=== PATIENT | male | born 1975 | race African-American/Black ===

== ENCOUNTER 2017-09-07 18:40 | Emergency (ER) | payer OTHER, MEDICAID ==
[2017-09-07] MEDS ORDERED: HYDROCODONE/ACETAMINOPHEN 5-325 MG (6 TAB/ER DISP) PO PRN (20:29)
--- NOTE | 2017-09-07 20:37 | ER Document Report ---
HPI - HPI Pain Level: 4 Context: 41 yo male with hx/o avascular necrosis of both hips c/o increased pain to right hip today. pt had recent hip MRI but has not had follow up appointment to get results. [facility]. usually takes Naprosyn for pain but no relief today. denies any recent trauma, no chest pain or shortness of breath. walks with cane Associated Symptoms: None Exacerbated by: Movement, Walking Relieved by: Denies Similar symptoms previously: Yes Recently seen / treated by doctor: No - ROS Systems Reviewed and Negative: Yes All other systems reviewed and negative - REPRODUCTIVE Reproductive: DENIES: : - MUSCULOSKELETAL Musculoskeletal: REPORTS: Extremity pain Past Medical History - General Information source: Patient - Social History Smoking Status: Former Smoker Chew tobacco use (# tins/day): Yes Frequency of alcohol use: Occasional Drug Abuse: None Lives with: Family Family History: CVA, DM, Hypertension, Thyroid Disfunction Patient has suicidal ideation: No Patient has homicidal ideation: No Endocrine Medical History: Reports: Hx Graves' Disease Renal/ Medical History: Reports: Hx Kidney Stones. Denies: Hx Peritoneal Dialysis Musculoskeltal Medical History: Reports Hx Arthritis, Reports Hx Musculoskeletal Deformity, Reports Other - avascular necrosis bilat hips Past Surgical History: Reports: Hx Nose Surgery - Immunizations Hx Diphtheria, Pertussis, Tetanus Vaccination: No Vertical Provider Document - CONSTITUTIONAL Agree With Documented VS: Yes Exam Limitations: No Limitations General Appearance: WD/WN - INFECTION CONTROL TRAVEL OUTSIDE OF THE [place]. IN LAST 30 DAYS: No - HEENT HEENT: Atraumatic, PERRLA - NECK Neck: Normal Inspection, Supple - RESPIRATORY Respiratory: Breath Sounds Normal, No Respiratory Distress O2 Sat by Pulse Oximetry: 96 - MUSCULOSKELETAL/EXTREMETIES Musculoskeletal/Extremeties: Tender - right greater trochanter and right anterior groin over sartorious muscle + pain with right hip abduction. distal SMC intact. Course - Re-evaluation Re-evalutation: 09/07/17 20:34 medical records from [place] reviewed. verified hx/o avascular necrosis. no signs of circulatory compromise. Follow up with PCP discussed with patient. pt verbalized understanding, agreeable with plan and stable for discharge. short course of pain meds prescribed. [place] Controlled substance report reviewed. no recent narcotics. - Vital Signs Vital signs: Temp Pulse Resp BP Pulse Ox 98.8 F 82 18 135/88 H 96 01/10/18 18:53 09/07/17 18:53 09/07/17 18:53 09/07/17 18:53 09/07/17 18:53 Discharge - Discharge Clinical Impression: Hip pain Qualifiers: Laterality: right Qualified Code(s): M25.551 - Pain in right hip Condition: Stable Disposition: HOME, SELF-CARE Instructions: Oral Narcotic Medication ([facility]) Additional Instructions: I have prescribed a short course of pain medication Please follow up with your primary care for further pain management Prescriptions: Oxycodone HCl/Acetaminophen [Percocet 5-325 mg Tablet] 1 tab PO Q6H PRN #25 tablet PRN Reason:
[2017-09-07 21:03] VITALS: BP 128/84
== END 2017-09-07 21:06 | disposition home or self-care (01) ==
LOC: ER 18:40
DX: M25.551 Pain in right hip (principal); Z87.39 Personal history of other diseases of the musculoskeletal system and connective tissue; Z87.891 Personal history of nicotine dependence
CPT/HCPCS: 99283

== ENCOUNTER 2018-03-11 11:40 | Emergency (ER) | payer OTHER, MEDICAID ==
[2018-03-11 11:46] VITALS: BP 148/99
[2018-03-11] MEDS ORDERED: FENTANYL CITRATE INJ/PF 100 MCG/2 ML AMPUL IM ONE (12:00)
[2018-03-11] MEDS ORDERED: METOCLOPRAMIDE HCL INJ/PF 10 MG/2 ML SDV IM ONE (12:00)
--- NOTE | 2018-03-11 12:02 | ER Document Report ---
ED Medical Screen (RME) - General Chief Complaint: Abdominal Pain Stated Complaint: ABDOMINAL PAIN Time Seen by Provider: 03/11/18 11:57 Notes: RAPID MEDICAL EVALUATION DISCLOSURE I have seen this patient as part of a Rapid Medical Evaluation and, if applicable, placed any initially appropriate orders. The patient will be seen and fully evaluated, including a full history and physical exam, by a provider ( in Main ED or Fast Track) when a room becomes available. 42-year-old male PMH kidney stones here with complaints of right-sided abdominal pain that started early this morning with nausea and vomiting. The pain has been constant and initially was nonradiating however in the last hour has started to shoot through to the back. He had some blood in the urine yesterday but none today. No dysuria frequency hesitancy. He has not taken anything for the symptoms. EXAM No appreciable abdominal TTP No CVA TTP TRAVEL OUTSIDE OF THE [place]. IN LAST 30 DAYS: No - Related Data Allergies/Adverse Reactions: shellfish derived Allergy (Verified 09/07/17 20:20) Past Medical History Endocrine Medical History: Reports: Hx Graves' Disease Renal/ Medical History: Reports: Hx Kidney Stones. Denies: Hx Peritoneal Dialysis Musculoskeltal Medical History: Reports Hx Arthritis, Reports Hx Musculoskeletal Deformity Past Surgical History: Reports: Hx Nose Surgery - Immunizations Hx Diphtheria, Pertussis, Tetanus Vaccination: No Physical Exam - Vital signs Vitals: Temp Pulse Resp BP Pulse Ox 98.5 F 63 28 H 148/99 H 100 03/11/18 11:44 03/11/18 11:44 03/11/18 11:44 03/11/18 11:44 03/11/18 11:44 Course - Vital Signs Vital signs: Temp Pulse Resp BP Pulse Ox 98.5 F 63 28 H 148/99 H 100 03/11/18 11:44 03/11/18 11:44 03/11/18 11:44 03/11/18 11:44 03/11/18 11:44
[2018-03-11 12:44] LABS: APPEARANCE,URINE SLIGHTLY-CLOUDY; BILIRUBIN,URINE NEGATIVE (NEGATIVE); COLOR,URINE YELLOW; GLUCOSE, URINE NEGATIVE (NEGATIVE); KETONES,URINE TRACE mg/dL (NEGATIVE); LEUKOCYTE ESTERASE,URINE NEGATIVE (NEGATIVE); NITRITE,URINE NEGATIVE (NEGATIVE); PROTEIN,URINE 100 mg/dL (NEGATIVE); URINE SPECIFIC GRAVITY 1.023; UROBILINOGEN,URINE NEGATIVE mg/dL (<2.0)
[2018-03-11 12:45] LABS: ABSOLUTE EOSINOPHILS # (AUTO) 0.2 10^3/uL (0.0-0.6); ABSOLUTE MONOCYTES (AUTO) 0.6 10^3/uL (0.1-1.4); ABSOLUTE NEUT (AUTO) 4.6 10^3/uL (1.7-8.2); BASOPHILS % (AUTO) 0.7 % (0-2); EOSINOPHILS % (AUTO) 2.9 % (0-6); HEMOGLOBIN 15.6 g/dL (13.5-17.0); MEAN CORPUSCULAR HEMOGLOBIN 32.4 pg (27.0-33.4); MEAN CORPUSCULAR VOLUME 95 fl (80-97); MONOCYTES % (AUTO) 9.3 % (3-13); PLATELET COUNT 307 10^3/uL (150-450); RED BLOOD COUNT 4.83 10^6/uL (4.35-5.55); RED CELL DISTRIBUTION WIDTH 13.2 % (11.5-14.0); SEGMENTED NEUTROPHILS % (AUTO) 72.1 % (42-78); TOTAL CELLS COUNTED % (AUTO) 100 %; WHITE BLOOD COUNT 6.4 10^3/uL (4.0-10.5)
--- NOTE | 2018-03-11 12:50 | RADIOLOGY REPORT (SQ) ---
EXAM DESCRIPTION: CT LTD RENAL STONE PROTOCOL ON COMPLETED DATE/TIME: 03/11/2018 12:38 pm REASON FOR STUDY: R abd/back pain; eval stone appendicitis etc COMPARISON: 04/13/2011 TECHNIQUE: CT scan of the abdomen and pelvis performed without intravenous or oral contrast. Images reviewed with lung, soft tissue, and bone windows. Reconstructed coronal and sagittal MPR images revi ewed. All images stored on PACS. All CT scanners at this facility use dose modulation, iterative reconstruction, and/or weight based d osing when appropriate to reduce radiation dose to as low as reasonably achievable (ALARA). [facility]: Dose Right [facility]: CareDose [facility]: Dose Right [facility]: Teradose 4D [facility]: Smart [place] RADIATION DOSE: CT Rad equipment meets quality standard of care and radiation dose reduction techniq ues were employed. CTDIvol: 9.0 mGy. DLP: 473 mGy-cm.mGy. LIMITATIONS: None. FINDINGS: LOWER CHEST: No significant findings. No nodules or infiltrates. NON-CONTRASTED LIVER, SPLEEN, ADRENALS: Evaluation limited by lack of IV contrast. No identified sign ificant masses. PANCREAS: No masses. No peripancreatic inflammatory changes. GALLBLADDER: No identified stones by CT criteria. No inflammatory changes to suggest cholecystitis. RIGHT KIDNEY AND URETER: No suspicious masses. Assessment limited by lack of IV contrast. 8 mm calc ulus at the UP junction with moderate proximal obstructive changes. No hydronephrosis or hydrourete r. LEFT KIDNEY AND URETER: No suspicious masses. Assessment limited by lack of IV contrast. No signifi cant calcifications. No hydronephrosis or hydroureter. AORTA AND RETROPERITONEUM: No aneurysm. No retroperitoneal masses or adenopathy. BOWEL AND PERITONEAL CAVITY: No obvious masses or inflammatory changes. No free fluid. APPENDIX: Normal. PELVIS, BLADDER, AND ABDOMINAL WALL:No abnormal masses. No free fluid. Bladder normal. BONES: Right THR OTHER: No other significant finding. IMPRESSION: 8 mm calculus proximal right UPJ with moderate obstructive changes. COMMENT: Quality ID # [id number]: Final reports with documentation of one or more dose reduction techniques (e.g., Automated exposure control, adjustment of the mA and/or kV according to patient size, use of iterative reconstruction technique) TECHNICAL DOCUMENTATION: JOB ID: [id number] [employer]- All Rights Reserved Reading location - IP/workstation name: [email or web address]
[2018-03-11 13:13] LABS: ALANINE AMINOTRANSFERASE 42 U/L (21-72); ALBUMIN 4.6 g/dL (3.5-5.0); ALKALINE PHOSPHATASE 105 U/L (38-126); ANION GAP 11 (5-19); ASPARTATE AMINO TRANSFERASE 31 U/L (17-59); BILIRUBIN,DIRECT 0.3 mg/dL (0.0-0.4); BILIRUBIN,TOTAL 0.8 mg/dL (0.2-1.3); BLOOD UREA NITROGEN 13 mg/dL (7-20); CALCIUM 9.9 mg/dL (8.4-10.2); CARBON DIOXIDE 30 mmol/L (22-30); CHLORIDE 100 mmol/L (98-107); GLUCOSE 122 mg/dL (75-110); LIPASE 98.5 U/L (23-300); POTASSIUM 4.8 mmol/L (3.6-5.0); SODIUM 141.2 mmol/L (137-145); TOTAL PROTEIN 8.1 g/dL (6.3-8.2)
[2018-03-11] MEDS ORDERED: KETOROLAC TROMETHAMINE INJ/PF 30 MG/1 ML SDV IV ONE (14:08)
--- NOTE | 2018-03-11 14:09 | ER Document Report ---
ED General - General Chief Complaint: Abdominal Pain Stated Complaint: ABDOMINAL PAIN Time Seen by Provider: 03/11/18 11:57 Mode of Arrival: Ambulatory Information source: Patient Notes: 42-year-old male who presents emergency department with complaints of right- sided abdominal pain. Pain is a sharp and stabbing sensation located in the right flank. The pain was initially nonradiating but has started to radiate to the back into the right lower quadrant. Patient states that he does have a history of kidney stones. He states that this feels different from the previous kidney stones that he has had. He states that he has noticed some hematuria. He denies any dysuria, increased urgency, increased frequency. He is having some associated nausea and vomiting. TRAVEL OUTSIDE OF THE [place]. IN LAST 30 DAYS: No - HPI Onset: This morning Onset/Duration: Sudden Quality of pain: Sharp, Stabbing, Throbbing Associated symptoms: Nausea, Vomiting Exacerbated by: Denies Relieved by: Denies Similar symptoms previously: No Recently seen / treated by doctor: No - Related Data Allergies/Adverse Reactions: shellfish derived Allergy (Verified 03/11/18 12:01) Past Medical History - General Information source: Patient - Social History Smoking Status: Never Smoker Chew tobacco use (# tins/day): Yes - 1can/weekly Frequency of alcohol use: Social Drug Abuse: None Family History: CVA, DM, Hypertension, Thyroid Disfunction Patient has suicidal ideation: No Patient has homicidal ideation: No Endocrine Medical History: Reports: Hx Graves' Disease Renal/ Medical History: Reports: Hx Kidney Stones. Denies: Hx Peritoneal Dialysis Musculoskeletal Medical History: Reports Hx Arthritis, Reports Hx Musculoskeletal Deformity Past Surgical History: Reports: Hx Nose Surgery - Immunizations Hx Diphtheria, Pertussis, Tetanus Vaccination: No Review of Systems - Review of Systems Constitutional: No symptoms reported EENT: No symptoms reported Cardiovascular: No symptoms reported Respiratory: No symptoms reported Gastrointestinal: Abdominal pain, Nausea, Vomiting Genitourinary: No symptoms reported Musculoskeletal: No symptoms reported Skin: No symptoms reported Hematologic/Lymphatic: No symptoms reported Neurological/Psychological: No symptoms reported -: Yes All other systems reviewed and negative Physical Exam - Vital signs Vitals: Temp Pulse Resp BP Pulse Ox 98.5 F 63 28 H 148/99 H 100 03/11/18 11:44 03/11/18 11:44 03/11/18 11:44 03/11/18 11:44 03/11/18 11:44 Interpretation: Normal - Notes Notes: PHYSICAL EXAMINATION: GENERAL: Well-appearing, well-nourished and in no acute distress. HEAD: Atraumatic, normocephalic. EYES: Pupils equal round and reactive to light, extraocular movements intact, sclera anicteric, conjunctiva are normal. ENT: Nares patent, oropharynx clear without exudates. Moist mucous membranes. NECK: Normal range of motion, supple without lymphadenopathy LUNGS: Breath sounds clear to auscultation bilaterally and equal. No wheezes rales or rhonchi. HEART: Regular rate and rhythm without murmurs ABDOMEN: Soft, nontender, nondistended abdomen. R flank tenderness to palpation. No guarding, no rebound. Musculoskeletal: Normal range of motion, no pitting or edema. No cyanosis. NEUROLOGICAL: Cranial nerves grossly intact. Normal speech, normal gait. Normal sensory, motor exams PSYCH: Normal mood, normal affect. SKIN: Warm, Dry, normal turgor, no rashes or lesions noted. Course - Re-evaluation Re-evalutation: 03/11/18 14:12 Labs and imaging obtained. Urinalysis is significant for red blood cells. CT of the abdomen and pelvis was done. It shows an 8 mm proximal UPJ stone. No hydro-or hydroureter appreciated. 03/11/18 14:[address] Fisher at [facility]. He would like to see the patient outpatient. I will try to control the patient's pain and provide him with Dr. Fisher's office information. 03/11/18 15:08 I discussed the plan of care with the patient. He is agreeable with discharge home and following up outpatient. He has oxycodone at home. I will provide nausea medication. Patient told to follow up with Dr. Fisher as directed, to take medications prescribed, and to return for worsening symptoms. - Vital Signs Vital signs: Temp Pulse Resp BP Pulse Ox 98.5 F 63 28 H 148/99 H 100 03/11/18 11:44 03/11/18 11:44 03/11/18 11:44 03/11/18 11:44 03/11/18 11:44 - Laboratory Result Diagrams: 03/11/18 12:15 03/11/18 12:15 Laboratory results interpreted by me: 03/11/18 03/11/18 12:15 12:15 Glucose 122 H Urine Protein 100 H Urine Ketones TRACE H Urine Blood LARGE H Urine Ascorbic Acid 40 H Discharge - Discharge Clinical Impression: Kidney stone on right side Condition: Stable Disposition: HOME, SELF-CARE Instructions: Kidney Stone ([facility]) Additional Instructions: Urologist: Dr. Dm Fisher Address: [address] [place] [address] Prescriptions: Ondansetron [Zofran Odt 4 mg Tablet] 1 tab PO Q4H PRN #15 tab.rapdis PRN Reason: For Nausea/Vomiting Referrals: SLICK SPEAR MD [Primary Care Provider] - Follow up as needed DM FISHER MD [NO LOCAL MD] - Follow up as needed
== END 2018-03-11 15:26 | disposition home or self-care (01) ==
LOC: ER 11:40
DX: N20.1 Calculus of ureter (principal); R31.0 Gross hematuria; R11.2 Nausea with vomiting, unspecified; Z91.013 Allergy to seafood; Z72.0 Tobacco use
CPT/HCPCS: 99284; 96372; 96374; 36415; 83690; 85025; 80053; 81001; 76380; J3010; J1885; J2765

== ENCOUNTER 2018-07-07 14:53 | Emergency (ER) | payer OTHER, MEDICAID ==
[2018-07-07] MEDS ORDERED: KETOROLAC TROMETHAMINE 60 MG/2 ML SDV IM ONE (16:19)
[2018-07-07] MEDS ORDERED: CYCLOBENZAPRINE HCL 10 MG TABLET PO ONE (16:19)
--- NOTE | 2018-07-07 16:19 | RADIOLOGY REPORT (SQ) ---
EXAM DESCRIPTION: WRIST RIGHT 3 VIEWS COMPLETED DATE/TIME: 07/07/2018 4:02 pm REASON FOR STUDY: possible fracture COMPARISON: 02/18/2014 NUMBER OF VIEWS: Three views. TECHNIQUE: AP, lateral, and oblique radiographic images acquired of the right wrist. LIMITATIONS: None. FINDINGS: MINERALIZATION: Normal. BONES: No acute fracture or dislocation. No worrisome bone lesions. Normal alignment. SOFT TISSUES: No soft tissue swelling. No foreign body. OTHER: No other significant finding. IMPRESSION: NEGATIVE STUDY OF THE RIGHT WRIST. NO RADIOGRAPHIC EVIDENCE OF ACUTE INJURY. TECHNICAL DOCUMENTATION: JOB ID: [id number] [employer]- All Rights Reserved Reading location - IP/workstation name: [email or web address]
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
--- NOTE | 2018-07-07 17:08 | RADIOLOGY REPORT (SQ) ---
EXAM DESCRIPTION: HIP BILATERAL COMPLETED DATE/TIME: 07/07/2018 4:47 pm REASON FOR STUDY: pain COMPARISON: Right hip films 04/26/2016 NUMBER OF VIEWS: Two views. TECHNIQUE: AP pelvis and additional frog-leg view of the right and left hip. LIMITATIONS: None. FINDINGS: MINERALIZATION: Normal. RIGHT HIP: No fracture or dislocation. Right total hip replacement with acetabular component anchore d with a screw. No lucency around the hardware worrisome for loosening. LEFT HIP: Subcortical bony sclerosis throughout the left femoral head weight-bearing surface from gideon scular necrosis. No articular surface collapse. This is similar compared to plain films from 016. No acute fracture or malalignment. PUBIS AND ISCHIUM: No fracture. PELVIS: No fracture. SACRUM: No fracture or dislocation. No worrisome bone lesions. LOWER LUMBAR SPINE: No fracture or dislocation. No worrisome bone lesions. No significant disc disea se. SOFT TISSUES: Prostate calcification OTHER: No other significant finding. IMPRESSION: Right hip replacement in good alignment. No lucency around the hardware worrisome for l oosening. Avascular necrosis left femoral head without articular surface collapse. No acute left femur fractur e. TECHNICAL DOCUMENTATION: JOB ID: [id number] [employer]- All Rights Reserved Reading location - IP/workstation name: [email or web address]
[2018-07-07] MEDS ORDERED: DIPH/PERTUSS(ACELL)/TETANUS VAC/PF 0.5 ML SYR (>=10YO) IM ONE (17:44)
[2018-07-07 18:26] VITALS: BP 128/87
== END 2018-07-07 18:34 | disposition home or self-care (01) ==
LOC: ER 14:53
DX: S60.512A Abrasion of left hand, initial encounter (principal); S50.811A Abrasion of right forearm, initial encounter; M79.645 Pain in left finger(s); M25.531 Pain in right wrist; M25.551 Pain in right hip; M25.552 Pain in left hip; M79.18 Myalgia, other site; M54.2 Cervicalgia; V53.5XXA Driver of pick-up truck or van injured in collision with car, pick-up truck or van in traffic accident, initial encounter; Z96.641 Presence of right artificial hip joint; Z96.612 Presence of left artificial shoulder joint; I96 Gangrene, not elsewhere classified; I10 Essential (primary) hypertension; Z72.0 Tobacco use
CPT/HCPCS: 99284; 96372; 90471; 73130; 73522; 73110; 90715; L3908; J1885

== ENCOUNTER 2019-02-17 02:59 | Emergency (ER) | payer OTHER, MEDICAID ==
[2019-02-17] MEDS ORDERED: ONDANSETRON HCL INJ/PF 4 MG/2 ML SDV IV ONE (03:49)
[2019-02-17] MEDS ORDERED: NORMAL SALINE 1000 ML 1,000 ML IV ONE (03:49)
[2019-02-17] MEDS ORDERED: MORPHINE SULFATE 10 MG/ML INJ IV ONE (03:49)
--- NOTE | 2019-02-17 03:51 | ER Document Report ---
ED Medical Screen (RME) - General Stated Complaint: ABDOMINAL PAIN Time Seen by Provider: 02/17/19 03:43 Notes: Patient is a 43-year-old male who who presents emergency department chief complaint nominal pain. He states the pain is on the right side. It started his mid abdomen now has radiated to the right lower side. It started about 5 hours ago. He states he feels nauseous, but he does not want to throw up because he took his medications tonight. He thought he was constipated and his last full bowel movement was yesterday morning. He is currently on Prilosec, iron, vitamin D. He has a history of Graves' disease, degenerative disease, avascular necrosis, and multiple skeletal surgeries in the past. Exam: Tender right abdomen. I have greeted and performed a rapid initial assessment of this patient. A comprehensive ED assessment and evaluation of the patient, analysis of test results and completion of medical decision making process will be conducted by an additional ED providers. TRAVEL OUTSIDE OF THE [place]. IN LAST 30 DAYS: No - Related Data Allergies/Adverse Reactions: shellfish derived Allergy (Verified 03/11/18 12:01) Past Medical History Endocrine Medical History: Reports: Hx Graves' Disease Renal/ Medical History: Reports: Hx Kidney Stones. Denies: Hx Peritoneal Dialysis Musculoskeltal Medical History: Reports Hx Arthritis, Reports Hx Musculoskeletal Deformity Past Surgical History: Reports: Hx Nose Surgery - Immunizations Hx Diphtheria, Pertussis, Tetanus Vaccination: No Physical Exam - Vital signs Vitals: Temp Pulse Resp BP Pulse Ox 98.4 F 69 24 H 142/105 H 100 02/17/19 03:06 02/17/19 03:06 02/17/19 03:06 02/17/19 03:06 02/17/19 03:06 Course - Vital Signs Vital signs: Temp Pulse Resp BP Pulse Ox 98.4 F 69 24 H 142/105 H 100 02/17/19 03:06 02/17/19 03:06 02/17/19 03:06 02/17/19 03:06 02/17/19 03:06
[2019-02-17 04:35] LABS: ABSOLUTE EOSINOPHILS # (AUTO) 0.1 10^3/uL (0.0-0.6); ABSOLUTE LYMPHOCYTES (AUTO) 1.3 10^3/uL (0.5-4.7); ABSOLUTE MONOCYTES (AUTO) 0.6 10^3/uL (0.1-1.4); ABSOLUTE NEUT (AUTO) 4.6 10^3/uL (1.7-8.2); BASOPHILS % (AUTO) 0.5 % (0-2); EOSINOPHILS % (AUTO) 1.3 % (0-6); HEMATOCRIT 42.4 % (37.9-51.0); HEMOGLOBIN 14.5 g/dL (13.5-17.0); LYMPHOCYTES % (AUTO) 18.9 % (13-45); MEAN CORPUSCULAR HEMOGLOBIN 32.5 pg (27.0-33.4); MEAN CORPUSCULAR HGB CONC 34.2 g/dL (32.0-36.0); MEAN CORPUSCULAR VOLUME 95 fl (80-97); MONOCYTES % (AUTO) 9.8 % (3-13); PLATELET COUNT 293 10^3/uL (150-450); RED BLOOD COUNT 4.46 10^6/uL (4.35-5.55); RED CELL DISTRIBUTION WIDTH 12.8 % (11.5-14.0); SEGMENTED NEUTROPHILS % (AUTO) 69.5 % (42-78); TOTAL CELLS COUNTED % (AUTO) 100 %; WHITE BLOOD COUNT 6.6 10^3/uL (4.0-10.5)
[2019-02-17 04:49] LABS: APPEARANCE,URINE CLEAR; BILIRUBIN,URINE NEGATIVE (NEGATIVE); COLOR,URINE YELLOW; GLUCOSE, URINE NEGATIVE (NEGATIVE); KETONES,URINE TRACE mg/dL (NEGATIVE); LEUKOCYTE ESTERASE,URINE NEGATIVE (NEGATIVE); NITRITE,URINE NEGATIVE (NEGATIVE); PROTEIN,URINE NEGATIVE (NEGATIVE); URINE SPECIFIC GRAVITY 1.025; UROBILINOGEN,URINE NEGATIVE mg/dL (<2.0)
[2019-02-17 04:55] LABS: ALANINE AMINOTRANSFERASE 45 U/L (21-72); ALBUMIN 4.5 g/dL (3.5-5.0); ALKALINE PHOSPHATASE 88 U/L (38-126); ANION GAP 12 (5-19); ASPARTATE AMINO TRANSFERASE 34 U/L (17-59); BILIRUBIN,DIRECT 0.4 mg/dL (0.0-0.4); BLOOD UREA NITROGEN 12 mg/dL (7-20); CALCIUM 9.6 mg/dL (8.4-10.2); CARBON DIOXIDE 23 mmol/L (22-30); CHLORIDE 102 mmol/L (98-107); GLUCOSE 132 mg/dL (75-110); POTASSIUM 4.8 mmol/L (3.6-5.0); SODIUM 136.9 mmol/L (137-145); TOTAL PROTEIN 7.8 g/dL (6.3-8.2)
[2019-02-17] MEDS ORDERED: DIPHENHYDRAMINE HCL 50 MG/ML VIAL ONE (05:18)
[2019-02-17] MEDS ORDERED: DIPHENHYDRAMINE HCL 50 MG/ML VIAL IV ONE (05:18)
--- NOTE | 2019-02-17 05:40 | RADIOLOGY REPORT (SQ) ---
EXAM DESCRIPTION: CT ABDOMEN PELVIS WITH IV CONTRAST COMPLETED DATE/TME: 02/17/2019 03:57 CLINICAL HISTORY: 43 years Male, abdominal pain Comparison: Bilateral hip radiographs, July 07, 2018 Technique: IV contrast. Coronal and sagittal reformat. This exam was performed according to our departmental dose-optimization program, which includes automated exposure control, adjustment of the mA and/or kV according to patient size and/or use of iterative reconstruction technique. [facility]: Dose Right [facility]: CareDose [facility]: Dose Right [facility]: Teradose 4D [facility]: Insplorion LIMITATIONS: None Findings: 0.8 x 0.9 x 0.7 cm, 868-HU, right proximal ureteral stone at the L3 level with moderate right hydronephrosis/hydroureter and moderate right perinephric fat stranding. AVN pattern of the left femoral head without fracture. No ascites. Right total hip arthroplasty. Hepatic steatosis. Normal appendix. No gross evidence of gallbladder inflammation or hepatobiliary obstruction. No bowel obstruction. No evidence of abdominal aortic aneurysm. Inferior thorax, liver, gallbladder, pancreas, spleen, adrenals, renal system, gastrointestinal tract, pelvic organs, lymphatics, vasculature, and musculoskeleton appear otherwise unremarkable. IMPRESSION: A 0.9 cm right proximal ureteral stone with moderate grade obstruction. Avascular necrosis of the left femoral head. Right total hip arthroplasty.
[2019-02-17] MEDS ORDERED: KETOROLAC TROMETHAMINE INJ/PF 30 MG/1 ML SDV IV ONE (06:02)
[2019-02-17] MEDS ORDERED: TAMSULOSIN HCL 0.4 MG CAP.SR.24H PO ONE (06:02)
--- NOTE | 2019-02-17 07:17 | ER Document Report ---
ED General - General Chief Complaint: Abdominal Pain Stated Complaint: ABDOMINAL PAIN Time Seen by Provider: 02/17/19 03:43 Notes: Patient is a 43-year-old male who who presents emergency department chief complaint nominal pain. He states the pain is on the right side. It started his mid abdomen now has radiated to the right lower side. It started about 5 hours ago. He states he feels nauseous, but he does not want to throw up because he took his medications tonight. He thought he was constipated and his last full bowel movement was yesterday morning. He is currently on Prilosec, iron, vitamin D. He has a history of Graves' disease, degenerative disease, avascular necrosis, and multiple skeletal surgeries in the past. TRAVEL OUTSIDE OF THE [place] IN LAST 30 DAYS: No - Related Data Allergies/Adverse Reactions: Iodinated Contrast- Oral and IV Dye Allergy (Verified 02/17/19 05:47) Pruritis shellfish derived Allergy (Verified 03/11/18 12:01) Past Medical History - Social History Smoking Status: Unknown if Ever Smoked Family History: CVA, DM, Hypertension, Thyroid Disfunction Patient has suicidal ideation: No Patient has homicidal ideation: No Endocrine Medical History: Reports: Hx Graves' Disease Renal/ Medical History: Reports: Hx Kidney Stones. Denies: Hx Peritoneal Dialysis Musculoskeletal Medical History: Reports Hx Arthritis, Reports Hx Musculoskeletal Deformity Past Surgical History: Reports: Hx Nose Surgery - Immunizations Hx Diphtheria, Pertussis, Tetanus Vaccination: No Review of Systems - Review of Systems Notes: REVIEW OF SYSTEMS: CONSTITUTIONAL : Denies recent illness. Denies recent unintentional weight loss. Denies fever, chills, or sweats. EENT: Denies eye, ear, throat, or mouth pain, discharge, or symptoms. Denies nasal or sinus congestion. CARDIOVASCULAR: Denies chest pain. RESPIRATORY: Denies shortness of breath, cough, congestion, difficulty breathing, or wheezing. GASTROINTESTINAL: See HPI GENITOURINARY: Denies difficulty urinating, burning, blood in urine, urgency or frequency. MUSCULOSKELETAL: Denies neck and back pain. Denies joint pain or swelling. SKIN: Denies rash, itchiness, or lesions HEMATOLOGIC : Denies easy bruising or bleeding. LYMPHATIC: Denies swollen, painful, enlarged glands. NEUROLOGICAL: Denies no numbness or tingling denies weakness. Denies headache. Denies altered mental status. Denies alteration in speech. PSYCHIATRIC: Denies stress, anxiety, alteration in sleep patterns, or depression. All other systems reviewed and negative. Physical Exam - Vital signs Vitals: Temp Pulse Resp BP Pulse Ox 98.4 F 69 24 H 142/105 H 100 02/17/19 03:06 02/17/19 03:06 02/17/19 03:06 02/17/19 03:06 02/17/19 03:06 - Notes Notes: PHYSICAL EXAMINATION: GENERAL: Appears well, healthy, well-nourished, no acute distress. HEAD: Normocephalic, atraumatic. EYES: PERRL, conjunctiva normal, all extraocular movements intact, sclera nonicteric ENT: Moist mucous membranes. NECK: Supple, no noticeable swelling, redness, rash. Normal range of motion. LUNGS: Equal breath sounds bilaterally and clear to auscultation. No wheezes rales or rhonchi. CARDIOVASCULAR: S1-S2, regular rate, regular rhythm. Radial pulses 2+, normal. ABDOMEN: Normoactive bowel sounds. Soft, tender right lower quadrant, no guarding, no rebound tenderness, and no masses palpated. EXTREMITIES: Normal strength and range of motion, no pitting or edema. No cyanosis. NEUROLOGICAL: Moves all extremities upon command. Strength 5/5 in all extremities. PSYCH: Normal mood, normal affect. SKIN: Warm, dry. No rash, lesions, ulcerations noted. Normal skin turgor. Course - Re-evaluation Re-evalutation: 02/17/19 07:18 Patient states that he feels much better after receiving the Toradol and Flomax. The pain is almost gone. I will start him on Flomax and Toradol at home. I have advised him that he will continue to have pain while the stone passes. He will follow-up with urology in regards to this visit. Follow-up precautions were given. Verbal discharge instructions were given to the patient. They verbalized understanding. They are stable for discharge. Documentation was completed using voice recognition software, therefore there may be some unintended grammatical or punctual errors. - Vital Signs Vital signs: Temp Pulse Resp BP Pulse Ox 98.4 F 69 17 123/85 95 02/17/19 03:06 02/17/19 03:06 02/17/19 07:02 02/17/19 07:02 02/17/19 07:02 - Laboratory Result Diagrams: 02/17/19 04:10 02/17/19 04:10 Laboratory results interpreted by me: 02/17/19 02/17/19 03:55 04:10 Sodium 136.9 L Glucose 132 H Urine Ketones TRACE H Urine Blood MODERATE H Discharge - Discharge Clinical Impression: Renal calculi Abdominal pain Qualifiers: Abdominal location: right lower quadrant Qualified Code(s): R10.31 - Right lower quadrant pain Condition: Stable Disposition: HOME, SELF-CARE Additional Instructions: Your symptoms should improve over the course of the next one week. If you continue to have pain for greater than one week or your pain is not controlled with the pain medications that you have been sent home with you need to return to the emergency department. Please also return if you develop fever, persistent vomiting, or any other symptoms that are concerning to you. You should take Toradol and Tylenol 1000 mg every 6 hours for your pain. You are also been sent home with a medication called Flomax to help pass the stone. You've been given Zofran to assist with nausea. Please follow-up with urology in the next 2-3 days. Prescriptions: Ketorolac Tromethamine [Toradol 10 mg Tablet] 10 mg PO Q6HP PRN #20 tablet PRN Reason: Ondansetron [Zofran Odt 4 mg Tablet] 1 - 2 tab PO Q4H PRN #15 tab.rapdis PRN Reason: For Nausea/Vomiting Tamsulosin HCl [Flomax 0.4 mg Cap.sr] 0.4 mg PO DAILY #7 cap.sr.24h
[2019-02-17 07:34] VITALS: BP 123/85
== END 2019-02-17 07:40 | disposition home or self-care (01) ==
LOC: ER 02:59
DX: N20.0 Calculus of kidney (principal); R10.31 Right lower quadrant pain; R11.0 Nausea; Z87.442 Personal history of urinary calculi
CPT/HCPCS: 99284; 96374; 96375; 36415; 85025; 80053; 81001; 74177; J1200; J1885; J2270; J2405; J7030